=== PATIENT | male | born 1950 | race Native Hawaiian/Other Pacific Islander ===

== ENCOUNTER 2017-05-12 07:57 | Outpatient (CLI) | payer OTHER ==
[2017-05-12 10:06] LABS: PLATELET COUNT 201 K/uL (142-355)
[2017-05-12 11:09] LABS: POTASSIUM 4.2 mmol/L (3.6-5.2); SODIUM 131 mmol/L (136-145)
== END 2017-05-12 19:18 | disposition home or self-care (01) ==
LOC: LABW 07:57
PROVIDERS: Internal Medicine
DX: I10 Essential (primary) hypertension (principal); E78.4 Other hyperlipidemia; R73.01 Impaired fasting glucose; Z12.5 Encounter for screening for malignant neoplasm of prostate
CPT/HCPCS: 36415; 80053; 80061; 82043; 82570; 83036; 84153; 84443; 85027

== ENCOUNTER 2018-05-14 07:43 | Outpatient (CLI) | payer OTHER ==
[2018-05-14 08:06] LABS: PLATELET COUNT 199 K/uL (142-355)
[2018-05-14 08:42] LABS: POTASSIUM 4.1 mmol/L (3.6-5.2)
== END 2018-05-14 23:08 | disposition home or self-care (01) ==
LOC: LABW 07:43
PROVIDERS: Internal Medicine
DX: I10 Essential (primary) hypertension (principal); E78.5 Hyperlipidemia, unspecified; R73.01 Impaired fasting glucose; Z79.899 Other long term (current) drug therapy; Z12.5 Encounter for screening for malignant neoplasm of prostate
CPT/HCPCS: 36415; 80053; 80061; 83036; 84153; 84443; 85027

== ENCOUNTER 2019-06-18 07:37 | Outpatient (CLI) | payer OTHER ==
[2019-06-18 09:13] LABS: PLATELET COUNT 197 K/uL (142-355)
== END 2019-06-18 22:56 | disposition home or self-care (01) ==
LOC: LABW 07:37
PROVIDERS: Internal Medicine
DX: Z00.00 Encounter for general adult medical examination without abnormal findings (principal); R73.01 Impaired fasting glucose; I10 Essential (primary) hypertension; E78.49 Other hyperlipidemia; Z12.5 Encounter for screening for malignant neoplasm of prostate
CPT/HCPCS: 36415; 80053; 80061; 83036; 84153; 84443; 85027

== ENCOUNTER 2020-07-12 07:58 | Outpatient (CLI) | payer OTHER ==
[2020-07-12 08:20] LABS: PLATELET COUNT 209 K/uL (142-355)
[2020-07-12 09:00] LABS: POTASSIUM 3.5 mmol/L (3.6-5.2)
== END 2020-07-12 22:42 | disposition home or self-care (01) ==
LOC: LABW 07:58
PROVIDERS: Internal Medicine
DX: I10 Essential (primary) hypertension (principal); R73.01 Impaired fasting glucose; E78.49 Other hyperlipidemia; Z12.5 Encounter for screening for malignant neoplasm of prostate; Z79.899 Other long term (current) drug therapy
CPT/HCPCS: 36415; 80053; 80061; 83036; 84153; 84443; 85027

== ENCOUNTER 2021-07-25 07:34 | Outpatient (CLI) | payer OTHER ==
[2021-07-25 08:36] LABS: PLATELET COUNT 220 K/uL (142-355)
[2021-07-25 08:43] LABS: POTASSIUM 3.6 mmol/L (3.6-5.2)
== END 2021-07-25 21:49 | disposition home or self-care (01) ==
LOC: LABW 07:34
PROVIDERS: ATTEND Internal Medicine
DX: Z00.00 Encounter for general adult medical examination without abnormal findings (principal); I10 Essential (primary) hypertension; E78.49 Other hyperlipidemia; R73.01 Impaired fasting glucose; Z79.899 Other long term (current) drug therapy; Z12.5 Encounter for screening for malignant neoplasm of prostate
CPT/HCPCS: 36415; 80053; 80061; 83036; 84153; 84443; 85027

== ENCOUNTER 2021-08-24 12:35 | Outpatient (CLI) | payer OTHER | END 2021-08-24 20:17 | disposition home or self-care (01) | LOC: CT 12:35 | PROVIDERS: ATTEND Internal Medicine | DX: F17.210 Nicotine dependence, cigarettes, uncomplicated (principal) ==

== ENCOUNTER 2022-05-17 18:18 | Emergency (ER) | payer OTHER ==
[~2022-05-17] VITALS: Ht 175.3 cm; Wt 74.8 kg
[2022-05-17 18:33] VITALS: BP 162/88; TEMP 97.1
== END 2022-05-17 21:24 | disposition left against medical advice (07) ==
LOC: ED 18:18
DX: T18.128A Food in esophagus causing other injury, initial encounter (principal); X58.XXXA Exposure to other specified factors, initial encounter; Y92.89 Other specified places as the place of occurrence of the external cause
CPT/HCPCS: 96374; 99284; J1610

== ENCOUNTER 2022-08-01 07:23 | Outpatient (CLI) | payer OTHER ==
[2022-08-01 07:54] LABS: PLATELET COUNT 196 K/uL (142-355)
[2022-08-01 08:26] LABS: POTASSIUM 3.7 mmol/L (3.6-5.2); SODIUM 136 mmol/L (136-145)
== END 2022-08-01 23:07 | disposition home or self-care (01) ==
LOC: LABW 07:23
PROVIDERS: ATTEND Internal Medicine
DX: I10 Essential (primary) hypertension (principal); R73.01 Impaired fasting glucose; E78.49 Other hyperlipidemia; Z12.5 Encounter for screening for malignant neoplasm of prostate
CPT/HCPCS: 36415; 80053; 80061; 83036; 84153; 84443; 85027

== ENCOUNTER 2022-09-04 10:43 | Outpatient (CLI) | payer OTHER | END 2022-09-04 19:38 | disposition home or self-care (01) | LOC: CT 10:43 | PROVIDERS: ATTEND Internal Medicine | DX: F17.210 Nicotine dependence, cigarettes, uncomplicated (principal) ==

== ENCOUNTER 2022-10-28 10:34 | Outpatient (CLI) | payer OTHER | END 2022-10-28 19:23 | disposition home or self-care (01) | LOC: LABW 10:34 | PROVIDERS: ATTEND Internal Medicine Endocrinology, Diabetes & Metabolism | DX: E05.90 Thyrotoxicosis, unspecified without thyrotoxic crisis or storm (principal) | CPT/HCPCS: 36415; 84439; 84443 ==

== ENCOUNTER 2023-02-03 10:40 | Outpatient (CLI) | payer OTHER | END 2023-02-03 19:50 | disposition home or self-care (01) | LOC: LABW 10:40 | PROVIDERS: ATTEND Internal Medicine Endocrinology, Diabetes & Metabolism | DX: E05.90 Thyrotoxicosis, unspecified without thyrotoxic crisis or storm (principal) | CPT/HCPCS: 36415; 84439; 84443 ==

== ENCOUNTER 2023-05-19 14:50 | Outpatient (CLI) | payer OTHER | END 2023-05-19 21:35 | disposition home or self-care (01) | LOC: LABW 14:50 | PROVIDERS: ATTEND Internal Medicine Endocrinology, Diabetes & Metabolism | DX: E05.90 Thyrotoxicosis, unspecified without thyrotoxic crisis or storm (principal) | CPT/HCPCS: 84443 ==